=== PATIENT | female | born 1945 | race Caucasian/White ===

== ENCOUNTER 2022-01-07 12:18 | Outpatient (CLI) | payer MEDICARE, BC, SELFPAY ==
--- NOTE | ~2022-01-07 | XR_ITS ---
EXAMINATION: XR hand RT min 3V INDICATION: Left hand pain and bruising TECHNIQUE: Three views of the right hand are obtained. COMPARISON: None available FINDINGS: Bone alignment is normal. The bones are osteopenic which limits the sensitivity for fractur e. There is an nondisplaced, oblique intra-articular fracture at the medial base of the fifth metacar pal. 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 IMPRESSION: 1. Nondisplaced intra-articular fracture at the medial base of the fifth metacarpal. Reviewed, dictated and finalized at location A. IMPRESSION: 1. Nondisplaced intra-articular fracture at the medial base of the fifth metaca rpal.
== END 2022-01-07 12:19 | disposition home or self-care (01) ==
PROVIDERS: PCP Family Medicine; Visit Provider Nurse Practitioner Family
DX: S62.346A Nondisplaced fracture of base of fifth metacarpal bone, right hand, initial encounter for closed fracture (principal); X58.XXXA Exposure to other specified factors, initial encounter
CPT/HCPCS: 73130

== ENCOUNTER 2023-04-18 14:23 | Outpatient (CLI) | payer MEDICARE, BC, SELFPAY ==
--- NOTE | ~2023-04-18 | XR_ITS ---
EXAMINATION: XR sacrum coccyx min 2V DATE: 04/18/2023 14:57 INDICATION: Sacrococcygeal pain. TECHNIQUE: 3 views of the sacrum and coccyx were obtained. COMPARISON: None. FINDINGS: There is lumbar levocurvature and severe spondylosis. No fracture. There is moderate osteo arthritis of the sacroiliac joints. IMPRESSION: 1. Moderate osteoarthritis of the sacroiliac joints. Reviewed, dictated and finalized at location E.
== END 2023-04-18 14:24 | disposition home or self-care (01) ==
PROVIDERS: PCP Family Medicine; Visit Provider Nurse Practitioner Family
DX: M53.3 Sacrococcygeal disorders, not elsewhere classified (principal)
CPT/HCPCS: 72220